=== PATIENT | male | born 1990 | race African-American/Black ===

== ENCOUNTER → 2018-05-18 | Outpatient (REF) | payer OTHER | LOC: M LAB REF 09:16 | PROVIDERS: ATTEND Physician Assistant | DX: J02.9 Acute pharyngitis, unspecified (principal) ==

== ENCOUNTER 2018-07-27 00:37 | Emergency (ER) | payer OTHER ==
[~2018-07-27] VITALS: Ht 175.3 cm; Wt 79.5 kg
[2018-07-27] MEDS ORDERED: HUMI40KI2 SC (00:52)
[2018-07-27] MEDS ORDERED: ceFAZolin SOD 1 GM in D5W MINI-BAG PLUS 50 ML IV ONE (01:00)
[2018-07-27] MEDS ORDERED: LIDOCAINE W/EPINEPHRINE 1% 20ML VIAL As Ordered ONE (02:09)
[2018-07-27] MEDS ORDERED: KEFL500C17 PO (04:28)
[2018-07-27] MEDS ORDERED: KETO10TAB PO (04:28)
[2018-07-27 04:44] VITALS: BP 148/84
--- NOTE | 2018-07-27 08:02 | REP ---
LEFT FOREARM, TWO VIEWS: HISTORY: Foreign body. There is no acute fracture or dislocation. The joint spaces are normal in appearance. A defect is present in the soft tissue overlying the distal radius and ulna. There is no radiopaque foreign body. IMPRESSION: There is no acute fracture or dislocation. Electronically Signed by Zach Medrano MD 07/27/2018 08:36 A
--- NOTE | 2018-07-28 20:54 | CR ---
DATE OF CONSULTATION: 07/27/2018 CONSULTING PHYSICIAN: Dr. Adan REASON FOR CONSULTATION: Left forearm laceration. CHIEF COMPLAINT: Left forearm pain. HISTORY OF PRESENT ILLNESS: Ata Mo is a 28-year-old right-hand dominant male who was rough housing with a friend and fell backward through a glass window, resulting in a laceration to the dorsoulnar aspect of the distal left forearm. The patient had a deep laceration with exposed skin, subcutaneous tissue, fascia, and muscle belly, and therefore orthopedics was consulted further management. The patient denied any numbness, tingling, or burning sensations distally about his left upper extremity. He had no other complaint. He localized pain to the left forearm. PAST MEDICAL HISTORY: Ankylosing spondylitis MEDICATIONS: None. ALLERGIES: No known drug allergies. PAST SURGICAL HISTORY: None. FAMILY HISTORY: Noncontributory. SOCIAL HISTORY: The patient is medically retired from the [employer]. 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 He does not smoke. He was drinking this evening but reportedly drinks rarely and does not use illicit drugs. REVIEW OF SYSTEMS: A 14-point review of systems was reviewed and is unremarkable. PHYSICAL EXAMINATION VITAL SIGNS: Temperature 98, heart rate 104, respiratory rate 20, blood pressure 139/82. GENERAL: This a well-nourished male who appears his stated age in no acute distress. NEUROLOGIC: He is awake, alert, and oriented to person, place, and time. He had intact sensory and motor function in the left upper extremity in radial, median, ulnar, AIN, and PIN distributions, to include the dorsal sensory branch of the ulnar nerve. CARDIOVASCULAR: He had 2+ radial pulse and brisk capillary refill at all digits of the left upper extremity. MUSCULOSKELETAL: Focused physical exam of the upper extremity demonstrated an 8 cm laceration the dorsoulnar aspect of the left distal forearm. There was exposed skin, subcutaneous tissue, muscle, fascia, and some tendon. Appeared to be tendon of the extensor carpi ulnaris (ECU), which was lacerated. The patient was able to independently flex and extend all digits at the metacarpophalangeal (MCP), distal interphalageal (DIP), and proximal interphalangeal (PIP) joints. He was able to independently extend his wrist without significant radial deviation. He had full flexion at the wrist and full flexion of all digits of the MCP, DIP, and PIP joints. RADIOGRAPHS: Plain radiographs of the left forearm demonstrate no evidence of foreign body and evidence of soft tissue injury. There was no fracture or dislocation. ASSESSMENT: This is a 28-year-old male with what appears to be left forearm deep laceration with involvement of the extensor carpi ulnaris tendon. PLAN: I discussed with the patient the nature of his injury. Given this is mostly extensor-sided laceration, this is amendable to irrigation and debridement with repair in the emergency department setting. The patient expressed understanding and provided informed consent for a left forearm irrigation and debridement and wound repair. PROCEDURE NOTE: After the patient's skin was sterilely prepped, I then performed a thorough irrigation of the wound with 3 liters of normal saline. The wound was explored. There was no foreign material within the wound. There did appear to be a sharp laceration of the ECU tendon, which was repaired using 3-0 Prolene suture. I then performed a repair of the laceration of the skin layer with simple interrupted 3-0 nylon sutures. This was done under local anesthesia with 15 mL of 1% lidocaine with epinephrine infiltrated locally into the wound. After completion of the laceration repair, sterile dressings were applied. The patient was placed in a volar splint. This ended the procedure. The patient tolerated the procedure well. POSTPROCEDURE PLAN: He will be discharged from emergency department today with oral antibiotics and pain medication. He will followup in the office on Saturday for a wound check and repeat exam. KARINE
== END 2018-07-27 04:46 | disposition home or self-care (01) ==
LOC: M ED 00:37
DX: S51.812A Laceration without foreign body of left forearm, initial encounter (principal); W25.XXXA Contact with sharp glass, initial encounter; Y92.008 Other place in unspecified non-institutional (private) residence as the place of occurrence of the external cause; Y93.83 Activity, rough housing and horseplay; M45.9 Ankylosing spondylitis of unspecified sites in spine; Z79.899 Other long term (current) drug therapy
CPT/HCPCS: 13120; 73090; 96365; 99284; J0690

== ENCOUNTER 2022-11-27 20:27 | Emergency (ER) | payer OTHER ==
[~2022-11-27] VITALS: Ht 172.7 cm; Wt 91.3 kg
[~2022-11-27 20:27] MED LIST: HUMI40KI2 SC; KEFL500C17 PO; KETO10TAB PO
[2022-11-27] MEDS ORDERED: CYCL-707 PO (20:39)
[2022-11-27] MEDS ORDERED: KETOROLAC 30 MG/ML 1ML VIAL IV ONE (23:30)
[2022-11-27] MEDS ORDERED: LIDOCAINE 5% (LIDODERM) PATCH TD ONE (23:30)
[2022-11-28] MEDS ORDERED: ISOVUE-370 76% 100ML VIAL As Ordered ONE (00:08)
[2022-11-28 00:22] LABS: BASO # 0.1 10^3/uL (0.0-0.2); BASO % 0.9 % (0.0-1.0); EOS # 0.3 10^3/uL (0.0-0.5); EOS % 4.2 % (0.0-3.0); HEMATOCRIT 46.4 % (42.0-52.0); HEMOGLOBIN 15.7 g/dl (13.5-17.5); LYMPH # 2.4 10^3/uL (1.5-5.0); MEAN CORPUSCULAR HEMOGLOBIN 28.8 pg (27.0-33.0); MEAN CORPUSCULAR HGB CONC 33.8 g/dl (32.0-36.5); MEAN CORPUSCULAR VOLUME 85.1 fl (80.0-96.0); MONO # 0.6 10^3/uL (0.0-0.8); MONO % 7.9 % (2.0-8.0); NEUTROPHILS # 4.5 10^3/uL (1.5-8.5); NEUTROPHILS % 56.5 % (36.0-66.0); PLATELET COUNT, AUTOMATED 294 10^3/uL (150-450); RED BLOOD COUNT 5.45 10^6/uL (4.30-6.10)
[2022-11-28] MEDS ORDERED: NAPR-837 PO (01:20)
[2022-11-28] MEDS ORDERED: ASPE4PAD TOP (01:20)
[2022-11-28] MEDS ORDERED: METH-1165 PO (01:20)
[2022-11-28] MEDS ORDERED: methocarbamoL 750 MG TAB PO ONE (01:25)
[2022-11-28 01:56] VITALS: BP 138/85; TEMP 98; O2SAT 99
== END 2022-11-28 01:57 | disposition home or self-care (01) ==
LOC: M ED 20:27
DX: M54.6 Pain in thoracic spine (principal); Z79.1 Long term (current) use of non-steroidal anti-inflammatories (NSAID); Z79.899 Other long term (current) drug therapy
CPT/HCPCS: 71275; 80047; 85025; 96374; 99284; J1885; Q9967